=== PATIENT | male | born 1980 | race Caucasian/White ===

== ENCOUNTER 2018-11-26 09:18 | Inpatient (IN) | payer MEDICARE, MEDICAID ==
[~2018-11-26] VITALS: Ht 182.9 cm; Wt 98.0 kg
[2018-11-26] MEDS ORDERED: SODIUM CHLORIDE 0.9% 1000ML BAG (SEPSIS BOLUS) IV ONE (09:45)
[2018-11-26 10:12] LABS: BASOPHILS % 0.1 % (0.0-2.0); HEMATOCRIT. 41.9 % (42.0-52.0); HEMOGLOBIN. 14.1 g/dL (14.0-18.0); LYMPHOCYTES % 7.3 % (20.0-50.0); MEAN CORPUSCULAR HEMOGLOBIN 29.7 pg (28.0-32.0); MEAN CORPUSCULAR VOLUME 88.4 fL (80.0-94.0); MEAN PLATELET VOLUME 9.9 fl (7.4-10.4); MONOCYTES % 9.8 % (2.0-8.0); NEUTROPHILS % 82.8 % (40.0-76.0); PLATELET 185 x1000/uL (130-400); RED BLOOD CELL COUNT 4.74 mill/uL (4.7-6.1); RED CELL DISTRIBUTION WIDTH 16.4 % (11.6-14.6)
[2018-11-26 10:19] LABS: CHLORIDE 103 mEq/L (98-107)
[2018-11-26 10:28] LABS: PROTHROMBIN TIME 10.6 sec (9.6-11.0)
[2018-11-26] MEDS ORDERED: ACETAMINOPHEN 325MG TABLET PO STA (10:36)
[2018-11-26] MEDS ORDERED: VANCOMYCIN 1 G PREMIX 200 ML IV SCH (11:00)
[2018-11-26] MEDS ORDERED: PIPERACILLIN/TAZ 3.375G PREMIX 50 ML IV ONE (11:00)
[2018-11-26] MEDS ORDERED: CLONIDINE 0.1MG TABLET PO PRN (13:00)
[2018-11-26] MEDS ORDERED: MORPHINE SULFATE 2 MG/ML CPJ (NOT FOR IM USE) IV PRN (13:00)
[2018-11-26] MEDS ORDERED: NA PHOS,M-B/NA PHOS,DI-BA ENEMA 118ML PR PRN (13:00)
[2018-11-26] MEDS ORDERED: DOCUSATE SODIUM 100MG CAPSULE PO PRN (13:00)
[2018-11-26] MEDS ORDERED: HYDROCODONE/ACETAMINOPHEN 5/325MG TABLET PO PRN (13:00)
[2018-11-26] MEDS ORDERED: GUAIFENESIN 200MG/10ML SUGAR FREE UDC PO PRN (13:00)
[2018-11-26] MEDS ORDERED: ONDANSETRON HCL 4MG/2ML INJ IV PRN (13:00)
[2018-11-26] MEDS ORDERED: MAGNESIUM/ALUMINUM HYDROXIDE/SIMETHICONE 30ML UDC PO PRN (13:00)
[2018-11-26] MEDS ORDERED: ACETAMINOPHEN 325MG TABLET PO PRN (13:00)
[2018-11-26] MEDS ORDERED: IPRATROPIUM/ALBUTEROL 0.5-3(2.5)MG/3ML NEB ONE (13:08)
[2018-11-26] MEDS: IPRATROPIUM/ALBUTEROL 0.5-3(2.5)MG/3ML NEB INH PRN (13:36)
[2018-11-26 15:12] LABS: CHLORIDE 107 mEq/L (98-107)
[2018-11-26 16:44] LABS: BG BASE EXCESS -0.5 mmol/L (-2.0-2.0); BG CARBOXYHEMOGLOBIN 0.1 % (0.5-1.5); BG DEOXYHEMOGLOBIN 6.6 % (0.0-5.0); BG FRACTION INSPIRED OXYGEN 32; BG HCO3 ACT 24.6 mmol/L (22.0-26.0); BG METHEMOGLOBIN 0.1 % (0.0-1.5); BG OXYGEN SATURATION 93.4 % (92.0-98.5); BG OXYHEMOGLOBIN 93.2 % (94.0-97.0); BG PCO2 42.1 mmHg (35.0-45.0); BG PH 7.385 (7.350-7.450); BG PO2 72.6 mmHg (75.0-100.0); BG SAMPLE SITE RIGHT RADIAL; BG TOTAL HEMOGLOBIN 13.3 g/dL (12.0-18.0); BG VENT MODE NASAL CANNULA
[2018-11-26 16:51] VITALS: BP 124/75
[2018-11-26 17:07] VITALS: BP 124/75
[2018-11-26 18:00] VITALS: BP 100/51
[2018-11-26] MEDS: PIPERACILLIN/TAZ 3.375G PREMIX 50 ML IV SCH (19:31)
[2018-11-26] MEDS: ENOXAPARIN 40MG/0.4ML SYR SUBCUT SCH (19:31)
[2018-11-26] MEDS: SODIUM CHLORIDE 0.45% 1,000 ML IV SCH (19:40)
[2018-11-26 20:00] VITALS: BP 112/70
[2018-11-26 22:00] VITALS: BP 122/68
[2018-11-27] VITALS (33 sets, daily range): BP systolic 112–151; BP diastolic 60–103
[2018-11-27] MEDS: IPRATROPIUM/ALBUTEROL 0.5-3(2.5)MG/3ML NEB HHN SCH ×6 (00:04→19:58)
[2018-11-27] MEDS: LORAZEPAM 2MG/ML CPJ IV PRN ×5 (00:06→19:56)
[2018-11-27] MEDS: ACETYLCYSTEINE 100MG/ML 10% VIAL 4ML INH SCH ×3 (00:10→16:23)
[2018-11-27] MEDS: PIPERACILLIN/TAZ 3.375G PREMIX 50 ML IV SCH ×5 (00:18→23:39)
[2018-11-27] MEDS: SODIUM CHLORIDE 0.45% 1,000 ML IV SCH ×2 (02:11→15:20)
[2018-11-27] MEDS: DIPHENHYDRAMINE 50MG/ML VIAL IV PRN (03:00)
[2018-11-27 04:58] LABS: BG BASE EXCESS 2.8 mmol/L (-2.0-2.0); BG CARBOXYHEMOGLOBIN 0.7 % (0.5-1.5); BG DEOXYHEMOGLOBIN 8.7 % (0.0-5.0); BG FRACTION INSPIRED OXYGEN 21; BG HCO3 ACT 26.9 mmol/L (22.0-26.0); BG METHEMOGLOBIN 0.2 % (0.0-1.5); BG OXYGEN SATURATION 91.2 % (92.0-98.5); BG OXYHEMOGLOBIN 90.4 % (94.0-97.0); BG PCO2 39.7 mmHg (35.0-45.0); BG PH 7.449 (7.350-7.450); BG PO2 59.1 mmHg (75.0-100.0); BG SAMPLE SITE LEFT RADIAL; BG TOTAL HEMOGLOBIN 12.6 g/dL (12.0-18.0); BG VENT MODE ROOM AIR
[2018-11-27 06:50] LABS: BASOPHILS % 0.1 % (0.0-2.0); EOSINOPHILS % 0.8 % (0.0-5.0); HEMATOCRIT. 33.6 % (42.0-52.0); HEMOGLOBIN. 11.3 g/dL (14.0-18.0); LYMPHOCYTES % 9.5 % (20.0-50.0); MEAN CORPUSCULAR HEMOGLOBIN 29.8 pg (28.0-32.0); MEAN CORPUSCULAR VOLUME 88.7 fL (80.0-94.0); MEAN PLATELET VOLUME 9.6 fl (7.4-10.4); MONOCYTES % 11.6 % (2.0-8.0); PLATELET 153 x1000/uL (130-400); RED BLOOD CELL COUNT 3.78 mill/uL (4.7-6.1); RED CELL DISTRIBUTION WIDTH 16.5 % (11.6-14.6)
[2018-11-27 06:52] LABS: CHLORIDE 106 mEq/L (98-107)
[2018-11-27 07:03] LABS: LDL CHOLESTEROL 66 mg/dL (5-100)
[2018-11-27 07:04] LABS: HDL CHOLESTEROL 19 mg/dL (40-59); T4 FREE 0.88 ng/dL (0.76-1.46)
[2018-11-27] MEDS ORDERED: LIDOCAINE HCL/PF 1% 2ML VIAL ONE (07:55)
[2018-11-27] MEDS: IPRATROPIUM/ALBUTEROL 0.5-3(2.5)MG/3ML NEB INH PRN (08:50)
[2018-11-27 11:07] LABS: BG BASE EXCESS 1.7 mmol/L (-2.0-2.0); BG CARBOXYHEMOGLOBIN 0.3 % (0.5-1.5); BG DEOXYHEMOGLOBIN 1.3 % (0.0-5.0); BG FRACTION INSPIRED OXYGEN 80; BG HCO3 ACT 26.5 mmol/L (22.0-26.0); BG METHEMOGLOBIN 0.5 % (0.0-1.5); BG OXYGEN SATURATION 98.7 % (92.0-98.5); BG OXYHEMOGLOBIN 97.9 % (94.0-97.0); BG PCO2 42.2 mmHg (35.0-45.0); BG PH 7.415 (7.350-7.450); BG SAMPLE SITE RIGHT BRACHIAL; BG TOTAL HEMOGLOBIN 11.6 g/dL (12.0-18.0); BG VENT MODE VAPOTHERM
[2018-11-27 12:05] LABS: CLARITY URINE CLEAR (CLEAR); COLOR URINE YELLOW (YELLOW); KETONES URINE NEGATIVE (NEGATIVE); LEUKOCYTE ESTERASE URINE NEGATIVE (NEGATIVE); NITRITE URINE NEGATIVE (NEGATIVE); OCCULT BLOOD URINE NEGATIVE (NEGATIVE); PROTEIN URINE TRACE (NEGATIVE); SPECIFIC GRAVITY URINE 1.025 (1.005-1.030)
[2018-11-27] MEDS: ENOXAPARIN 40MG/0.4ML SYR SUBCUT SCH (16:31)
[2018-11-28] VITALS (30 sets, daily range): BP systolic 106–151; BP diastolic 62–87
[2018-11-28] MEDS: ACETYLCYSTEINE 100MG/ML 10% VIAL 4ML INH SCH ×3 (00:08→16:30)
[2018-11-28] MEDS: IPRATROPIUM/ALBUTEROL 0.5-3(2.5)MG/3ML NEB HHN SCH ×6 (00:08→19:54)
[2018-11-28] MEDS: SODIUM CHLORIDE 0.45% 1,000 ML IV SCH ×2 (03:49→16:45)
[2018-11-28] MEDS: PIPERACILLIN/TAZ 3.375G PREMIX 50 ML IV SCH ×4 (05:05→23:49)
[2018-11-28 05:14] LABS: BASOPHILS % 0.2 % (0.0-2.0); EOSINOPHILS % 1.7 % (0.0-5.0); HEMATOCRIT. 36.9 % (42.0-52.0); HEMOGLOBIN. 12.1 g/dL (14.0-18.0); LYMPHOCYTES % 18.2 % (20.0-50.0); MEAN CORPUSCULAR HEMOGLOBIN 29.4 pg (28.0-32.0); MEAN CORPUSCULAR VOLUME 89.7 fL (80.0-94.0); MEAN PLATELET VOLUME 9.3 fl (7.4-10.4); MONOCYTES % 11.1 % (2.0-8.0); NEUTROPHILS % 68.8 % (40.0-76.0); PLATELET 160 x1000/uL (130-400); RED BLOOD CELL COUNT 4.11 mill/uL (4.7-6.1); RED CELL DISTRIBUTION WIDTH 16.3 % (11.6-14.6)
[2018-11-28 05:18] LABS: CHLORIDE 105 mEq/L (98-107)
[2018-11-28] MEDS: ASPIRIN 81MG EC TABLET PO SCH (09:00)
[2018-11-28 11:16] LABS: BG BASE EXCESS 2.5 mmol/L (-2.0-2.0); BG CARBOXYHEMOGLOBIN 0.1 % (0.5-1.5); BG DEOXYHEMOGLOBIN 3.2 % (0.0-5.0); BG FRACTION INSPIRED OXYGEN 40; BG HCO3 ACT 28.1 mmol/L (22.0-26.0); BG METHEMOGLOBIN 0.3 % (0.0-1.5); BG OXYGEN SATURATION 96.8 % (92.0-98.5); BG OXYHEMOGLOBIN 96.4 % (94.0-97.0); BG PCO2 47.5 mmHg (35.0-45.0); BG PO2 93.5 mmHg (75.0-100.0); BG SAMPLE SITE RIGHT RADIAL; BG TOTAL HEMOGLOBIN 12.1 g/dL (12.0-18.0); BG VENT MODE VAPOTHERM
[2018-11-28] MEDS ORDERED: CLON2TAB11 PO (14:27)
[2018-11-28] MEDS ORDERED: CHLO50TA22 MT (14:27)
[2018-11-28] MEDS ORDERED: OLAN15TA17 MT (14:27)
[2018-11-28] MEDS ORDERED: CHLO100T22 MT (14:27)
[2018-11-28] MEDS ORDERED: BENZ2TAB7 MT (14:27)
[2018-11-28] MEDS ORDERED: DIVA500T51 MT (14:27)
[2018-11-28] MEDS ORDERED: QUET200T29 MT (14:27)
[2018-11-28] MEDS ORDERED: QUET400T11 PO (14:27)
[2018-11-28] MEDS: LORAZEPAM 2MG/ML CPJ IV PRN ×2 (16:45→23:40)
[2018-11-28] MEDS: CLONAZEPAM 1MG TABLET PO SCH (18:01)
[2018-11-28] MEDS: ENOXAPARIN 30MG/0.3ML SYR SUBCUT SCH (21:48)
[2018-11-28] MEDS ORDERED: CLONAZEPAM 1MG TABLET PO SCH (22:00)
[2018-11-29] VITALS (17 sets, daily range): BP systolic 100–144; BP diastolic 64–94
[2018-11-29] MEDS: ACETYLCYSTEINE 100MG/ML 10% VIAL 4ML INH SCH ×4 (00:05→16:41)
[2018-11-29] MEDS: IPRATROPIUM/ALBUTEROL 0.5-3(2.5)MG/3ML NEB HHN SCH ×6 (00:05→20:00)
[2018-11-29] MEDS: CLONAZEPAM 1MG TABLET PO SCH ×3 (01:06→18:39)
[2018-11-29] MEDS: PIPERACILLIN/TAZ 3.375G PREMIX 50 ML IV SCH ×3 (05:17→19:37)
[2018-11-29 06:09] LABS: HEMATOCRIT. 35.4 % (42.0-52.0); HEMOGLOBIN. 11.6 g/dL (14.0-18.0); MEAN CORPUSCULAR HEMOGLOBIN 29.1 pg (28.0-32.0); MEAN CORPUSCULAR VOLUME 88.6 fL (80.0-94.0); MEAN PLATELET VOLUME 8.8 fl (7.4-10.4); PLATELET 221 x1000/uL (130-400); RED CELL DISTRIBUTION WIDTH 16.2 % (11.6-14.6)
[2018-11-29 06:11] LABS: CHLORIDE 104 mEq/L (98-107)
[2018-11-29] MEDS: SODIUM CHLORIDE 0.45% 1,000 ML IV SCH (07:17)
[2018-11-29 08:43] LABS: BG BASE EXCESS 1.8 mmol/L (-2.0-2.0); BG CARBOXYHEMOGLOBIN 0.7 % (0.5-1.5); BG DEOXYHEMOGLOBIN 2.7 % (0.0-5.0); BG FRACTION INSPIRED OXYGEN 40; BG HCO3 ACT 27.8 mmol/L (22.0-26.0); BG METHEMOGLOBIN 0.2 % (0.0-1.5); BG OXYGEN SATURATION 97.3 % (92.0-98.5); BG OXYHEMOGLOBIN 96.4 % (94.0-97.0); BG PCO2 49.3 mmHg (35.0-45.0); BG PH 7.369 (7.350-7.450); BG PO2 102.7 mmHg (75.0-100.0); BG SAMPLE SITE LEFT RADIAL; BG TOTAL HEMOGLOBIN 12.9 g/dL (12.0-18.0); BG VENT MODE VAPOTHERM
[2018-11-29] MEDS: ASPIRIN 81MG EC TABLET PO SCH (08:58)
[2018-11-29] MEDS: ENOXAPARIN 30MG/0.3ML SYR SUBCUT SCH ×2 (08:59→21:49)
[2018-11-29 14:14] LABS: PLATELET ESTIMATE NORMAL
[2018-11-29] MEDS: LORAZEPAM 2MG/ML CPJ IV PRN ×2 (16:20→21:49)
[2018-11-29] MEDS: DIPHENHYDRAMINE 50MG/ML VIAL IV PRN (23:31)
[2018-11-30] MEDS: IPRATROPIUM/ALBUTEROL 0.5-3(2.5)MG/3ML NEB HHN SCH ×7 (00:25→23:53)
[2018-11-30] MEDS: PIPERACILLIN/TAZ 3.375G PREMIX 50 ML IV SCH ×4 (00:53→17:11)
[2018-11-30] MEDS: CLONAZEPAM 1MG TABLET PO SCH ×3 (02:00→17:11)
[2018-11-30 04:00] VITALS: BP 118/74
[2018-11-30] MEDS: SODIUM CHLORIDE 0.45% 1,000 ML IV SCH (06:01)
[2018-11-30 08:00] VITALS: BP 120/94
[2018-11-30 08:05] LABS: BG BASE EXCESS -1.9 mmol/L (-2.0-2.0); BG CARBOXYHEMOGLOBIN 0.3 % (0.5-1.5); BG DEOXYHEMOGLOBIN 7.4 % (0.0-5.0); BG FRACTION INSPIRED OXYGEN 21; BG HCO3 ACT 22.3 mmol/L (22.0-26.0); BG METHEMOGLOBIN 0.3 % (0.0-1.5); BG OXYGEN SATURATION 92.6 % (92.0-98.5); BG PCO2 36.3 mmHg (35.0-45.0); BG PH 7.406 (7.350-7.450); BG PO2 66.2 mmHg (75.0-100.0); BG SAMPLE SITE LEFT RADIAL; BG TOTAL HEMOGLOBIN 13.1 g/dL (12.0-18.0); BG VENT MODE ROOM AIR
[2018-11-30] MEDS: ACETYLCYSTEINE 100MG/ML 10% VIAL 4ML INH SCH ×3 (08:12→23:49)
[2018-11-30] MEDS: LORAZEPAM 2MG/ML CPJ IV PRN ×2 (09:32→15:28)
[2018-11-30] MEDS: ASPIRIN 81MG EC TABLET PO SCH (09:51)
[2018-11-30] MEDS: ENOXAPARIN 30MG/0.3ML SYR SUBCUT SCH ×2 (09:51→20:35)
[2018-11-30 12:00] VITALS: BP 122/74
[2018-11-30 16:00] VITALS: BP 142/85
[2018-11-30] MEDS: DIPHENHYDRAMINE 50MG/ML VIAL IV PRN (17:05)
[2018-11-30 20:00] VITALS: BP 118/75
[2018-12-01] VITALS (7 sets, daily range): BP systolic 108–148; BP diastolic 76–98
[2018-12-01] MEDS: DIPHENHYDRAMINE 50MG/ML VIAL IV PRN ×2 (00:43→06:50)
[2018-12-01] MEDS: SODIUM CHLORIDE 0.45% 1,000 ML IV SCH ×3 (01:37→13:15)
[2018-12-01] MEDS: PIPERACILLIN/TAZ 3.375G PREMIX 50 ML IV SCH ×4 (01:37→17:42)
[2018-12-01] MEDS: CLONAZEPAM 1MG TABLET PO SCH ×3 (02:00→17:42)
[2018-12-01] MEDS: LORAZEPAM 2MG/ML CPJ IV PRN ×2 (03:01→22:01)
[2018-12-01] MEDS: IPRATROPIUM/ALBUTEROL 0.5-3(2.5)MG/3ML NEB HHN SCH ×5 (04:20→20:28)
[2018-12-01] MEDS: ACETYLCYSTEINE 100MG/ML 10% VIAL 4ML INH SCH (09:20)
[2018-12-01] MEDS: ASPIRIN 81MG EC TABLET PO SCH (09:22)
[2018-12-01] MEDS: ENOXAPARIN 30MG/0.3ML SYR SUBCUT SCH ×2 (09:23→21:24)
[2018-12-02] VITALS (7 sets, daily range): BP systolic 114–135; BP diastolic 72–84
[2018-12-02] MEDS: PIPERACILLIN/TAZ 3.375G PREMIX 50 ML IV SCH ×5 (01:17→17:35)
[2018-12-02] MEDS: SODIUM CHLORIDE 0.45% 1,000 ML IV SCH ×2 (01:18→15:46)
[2018-12-02] MEDS: CLONAZEPAM 1MG TABLET PO SCH ×4 (01:18→17:34)
[2018-12-02] MEDS: ACETYLCYSTEINE 100MG/ML 10% VIAL 4ML INH SCH ×2 (01:20→08:00)
[2018-12-02] MEDS: IPRATROPIUM/ALBUTEROL 0.5-3(2.5)MG/3ML NEB HHN SCH ×5 (01:24→20:04)
[2018-12-02] MEDS: ENOXAPARIN 30MG/0.3ML SYR SUBCUT SCH ×2 (09:19→21:36)
[2018-12-02] MEDS: ASPIRIN 81MG EC TABLET PO SCH (09:19)
[2018-12-02] MEDS: DIPHENHYDRAMINE 50MG/ML VIAL IV PRN ×2 (15:46→20:29)
[2018-12-02] MEDS: LORAZEPAM 2MG/ML CPJ IV PRN (21:26)
[2018-12-02] MEDS ORDERED: LORAZEPAM 2MG/ML CPJ IV PRN (22:15)
[2018-12-03] VITALS: BP 120/86
[2018-12-03] MEDS: IPRATROPIUM/ALBUTEROL 0.5-3(2.5)MG/3ML NEB HHN SCH ×3 (00:10→09:21)
[2018-12-03] MEDS: PIPERACILLIN/TAZ 3.375G PREMIX 50 ML IV SCH ×2 (00:44→05:54)
[2018-12-03] MEDS ORDERED: LORAZEPAM 2MG/ML CPJ IV PRN (01:30)
[2018-12-03] MEDS: CLONAZEPAM 1MG TABLET PO SCH ×2 (01:39→09:22)
[2018-12-03] MEDS: DIPHENHYDRAMINE 50MG/ML VIAL IV PRN (03:37)
[2018-12-03 04:00] VITALS: BP 116/76
[2018-12-03] MEDS: SODIUM CHLORIDE 0.45% 1,000 ML IV SCH (05:56)
[2018-12-03 08:00] VITALS: BP 114/78
[2018-12-03] MEDS: ASPIRIN 81MG EC TABLET PO SCH (09:22)
[2018-12-03] MEDS: ENOXAPARIN 30MG/0.3ML SYR SUBCUT SCH (09:22)
[2018-12-03 10:43] VITALS: BP 114/78
[2018-12-03 12:00] VITALS: BP 111/68
== END 2018-12-03 12:30 | disposition short-term general hospital (02) | DRG 871 ==
LOC: ER 09:18 → EDBEDREQ 12:32 → 3WST 12:52 → EDBEDREQ 13:00 → ENRESERV 13:37 → CVICU 11-27 09:50 → 7WST 11-29 12:37
PROVIDERS: ADMIT Internal Medicine; ATTEND Internal Medicine
DX: A41.9 Sepsis, unspecified organism (principal); J69.0 Pneumonitis due to inhalation of food and vomit; G93.41 Metabolic encephalopathy; J96.01 Acute respiratory failure with hypoxia; E87.2 Acidosis; E44.1 Mild protein-calorie malnutrition; I10 Essential (primary) hypertension; F29 Unspecified psychosis not due to a substance or known physiological condition; R65.20 Severe sepsis without septic shock; Z86.73 Personal history of transient ischemic attack (TIA), and cerebral infarction without residual deficits; Z78.1 Physical restraint status; Z68.29 Body mass index [BMI] 29.0-29.9, adult
CPT/HCPCS: 36415; 36600; 71045; 80048; 80061; 82375; 82805; 83605; 83880; 84145; 84439; 84443; 84484; 85379; 92610; 93005; 93306; 93970; 94640; 96365; 99291; A6261; C1893; J1200; J1650; J2060; J2543; J3370; J3490; J7030; J7040; J7050; J7608; J7620; A4315

== ENCOUNTER 2019-06-03 16:50 | Emergency (ER) | payer MEDICARE, MEDICAID ==
[~2019-06-03] VITALS: Ht 180.3 cm; Wt 85.0 kg
[~2019-06-03 16:50] MED LIST: BENZ2TAB7 MT; CHLO100T22 MT; CHLO50TA22 MT; CLON2TAB11 PO; DIVA500T51 MT; OLAN15TA17 MT; QUET200T29 MT; QUET400T11 PO
[2019-06-03 17:57] VITALS: BP 110/58
[2019-06-03 22:30] LABS: BASOPHILS % 0.1 % (0.0-2.0); CHLORIDE 103 mEq/L (98-107); EOSINOPHILS % 1.3 % (0.0-5.0); HEMATOCRIT. 38.6 % (42.0-52.0); HEMOGLOBIN. 13.1 g/dL (14.0-18.0); LYMPHOCYTES % 26.5 % (20.0-50.0); MEAN CORPUSCULAR HEMOGLOBIN 30.2 pg (28.0-32.0); MEAN CORPUSCULAR VOLUME 88.9 fL (80.0-94.0); MEAN PLATELET VOLUME 9.6 fl (7.4-10.4); MONOCYTES % 14.8 % (2.0-8.0); NEUTROPHILS % 57.3 % (40.0-76.0); PLATELET 135 x1000/uL (130-400); RED BLOOD CELL COUNT 4.34 mill/uL (4.7-6.1); RED CELL DISTRIBUTION WIDTH 16.4 % (11.6-14.6)
== END 2019-06-03 23:33 | disposition home or self-care (01) ==
LOC: ER 16:59
DX: R09.81 Nasal congestion (principal); F84.0 Autistic disorder; Z86.73 Personal history of transient ischemic attack (TIA), and cerebral infarction without residual deficits
CPT/HCPCS: 36415; 71045; 80053; 83880; 84484; 85025; 87804; 99284

== ENCOUNTER 2019-09-15 17:54 | Inpatient (IN) | payer MEDICARE, MEDICAID ==
[~2019-09-15] VITALS: Ht 182.9 cm; Wt 91.2 kg
[~2019-09-15 17:54] MED LIST changes: -DIVA500T51 MT; +DIVA500T51 PO; -OLAN15TA17 MT; +OLAN15TA17 PO
[2019-09-15] MEDS ORDERED: SODIUM CHLORIDE 0.9% 1000ML BAG (SEPSIS BOLUS) IV ONE (18:45)
[2019-09-15 19:01] LABS: BASOPHILS % 0.3 % (0.0-2.0); EOSINOPHILS % 0.8 % (0.0-5.0); HEMATOCRIT. 42.3 % (42.0-52.0); HEMOGLOBIN. 14.5 g/dL (14.0-18.0); MEAN CORPUSCULAR HEMOGLOBIN 31.3 pg (28.0-32.0); MEAN CORPUSCULAR VOLUME 91.3 fL (80.0-94.0); MONOCYTES % 11.6 % (2.0-8.0); NEUTROPHILS % 58.3 % (40.0-76.0); PLATELET 139 x1000/uL (130-400); RED BLOOD CELL COUNT 4.63 mill/uL (4.7-6.1); RED CELL DISTRIBUTION WIDTH 15.8 % (11.6-14.6)
[2019-09-15 19:08] LABS: CHLORIDE 100 mEq/L (98-107)
[2019-09-15] MEDS ORDERED: LEVOFLOXACIN 750MG PREMIX 150 ML IV ONE (20:15)
[2019-09-15] MEDS ORDERED: CLONIDINE 0.1MG TABLET PO PRN (21:15)
[2019-09-15] MEDS ORDERED: NITROGLYCERIN 0.4MG TABLET SL SL PRN (21:15)
[2019-09-15] MEDS ORDERED: TRAMADOL 50MG TABLET PO PRN (21:15)
[2019-09-15] MEDS ORDERED: LORAZEPAM 2MG/ML CPJ IV PRN (21:15)
[2019-09-15] MEDS ORDERED: DOCUSATE SODIUM 100MG CAPSULE PO PRN (21:15)
[2019-09-15] MEDS ORDERED: GUAIFENESIN 200MG/10ML SUGAR FREE UDC PO PRN (21:15)
[2019-09-15] MEDS ORDERED: ACETAMINOPHEN 325MG TABLET PO PRN ×2 (21:15)
[2019-09-15] MEDS ORDERED: MAGNESIUM/ALUMINUM HYDROXIDE/SIMETHICONE 30ML UDC PO PRN (21:15)
[2019-09-15] MEDS ORDERED: KETOROLAC 15MG/ML VIAL IV PRN (21:15)
[2019-09-15] MEDS ORDERED: ONDANSETRON HCL 4MG/2ML INJ IV PRN (21:15)
[2019-09-15] MEDS ORDERED: IPRATROPIUM/ALBUTEROL 0.5-3(2.5)MG/3ML NEB ORI PRN (21:15)
[2019-09-15] MEDS ORDERED: LORAZEPAM 2MG/ML CPJ IV ONE (22:00)
[2019-09-15 22:27] LABS: CREATINE KINASE MB FRACTION 8.3 ng/mL (0.5-3.6)
[2019-09-15 22:55] LABS: CLARITY URINE CLEAR (CLEAR); COLOR URINE YELLOW (YELLOW); KETONES URINE NEGATIVE (NEGATIVE); LEUKOCYTE ESTERASE URINE NEGATIVE (NEGATIVE); NITRITE URINE NEGATIVE (NEGATIVE); OCCULT BLOOD URINE NEGATIVE (NEGATIVE); PH URINE 6.5 (4.5-8.0); PROTEIN URINE NEGATIVE (NEGATIVE); SPECIFIC GRAVITY URINE 1.009 (1.005-1.030)
[2019-09-16 09:00] LABS: CREATINE KINASE MB FRACTION 5.1 ng/mL (0.5-3.6)
[2019-09-16] MEDS ORDERED: CEFTRIAXONE 1 G PREMIX 50 ML IV SCH (09:00)
[2019-09-16] MEDS: ZINC SULFATE 220 MG ( 50 ) CAPSULE PO SCH (09:05)
[2019-09-16] MEDS: ASCORBIC ACID 500 MG TABLET PO SCH ×2 (09:05→21:00)
[2019-09-16] MEDS: FAMOTIDINE 20MG TABLET PO SCH ×2 (09:11→21:00)
[2019-09-16] MEDS: DIVALPROEX SODIUM 500MG DR TABLET PO SCH (09:12)
[2019-09-16] MEDS: GUAIFENESIN/DM 600MG/30MG ER TAB 12HR PO SCH ×2 (09:48→21:00)
[2019-09-16] MEDS ORDERED: CLONAZEPAM 1MG TABLET PO SCH (14:00)
[2019-09-16] MEDS ORDERED: LEVOFLOXACIN 500MG PREMIX 100 ML IV SCH (21:00)
[2019-09-16] MEDS ORDERED: ZOLPIDEM TARTRATE 5MG TABLET PO PRN (21:00)
[2019-09-16 22:30] VITALS: BP 156/89
[2019-09-16] MEDS ORDERED: DIVA250T45 PO (23:48)
[2019-09-17 04:00] VITALS: BP 113/57
[2019-09-17] MEDS: CLONAZEPAM 1MG TABLET PO SCH ×3 (06:55→21:05)
[2019-09-17 08:00] VITALS: BP 128/87
[2019-09-17] MEDS: GUAIFENESIN/DM 600MG/30MG ER TAB 12HR PO SCH ×2 (09:15→20:08)
[2019-09-17] MEDS: ZINC SULFATE 220 MG ( 50 ) CAPSULE PO SCH (09:15)
[2019-09-17] MEDS: DIVALPROEX SODIUM 500MG DR TABLET PO SCH (09:16)
[2019-09-17] MEDS: ASCORBIC ACID 500 MG TABLET PO SCH ×2 (09:16→20:08)
[2019-09-17] MEDS: FAMOTIDINE 20MG TABLET PO SCH ×2 (09:16→20:08)
[2019-09-17] MEDS: CEFTRIAXONE 1 G PREMIX 50 ML IV SCH (11:00)
[2019-09-17 12:00] VITALS: BP 120/80
[2019-09-17] MEDS ORDERED: LEVOFLOXACIN 500MG PREMIX 100 ML IV NR (14:00)
[2019-09-17] MEDS ORDERED: LEVOFLOXACIN 500MG TABLET PO NR (14:15)
[2019-09-17 16:00] VITALS: BP 142/96
[2019-09-17] MEDS: HALOPERIDOL LACTATE 5MG/ML VIAL IM PRN ×2 (16:51→22:14)
[2019-09-17 20:00] VITALS: BP 141/83
[2019-09-18] VITALS: BP 131/77
[2019-09-18 04:00] VITALS: BP 122/85
[2019-09-18] MEDS: CLONAZEPAM 1MG TABLET PO SCH ×3 (05:02→20:47)
[2019-09-18 08:00] VITALS: BP 115/72
[2019-09-18] MEDS: ASCORBIC ACID 500 MG TABLET PO SCH ×2 (09:48→20:47)
[2019-09-18] MEDS: FAMOTIDINE 20MG TABLET PO SCH ×2 (09:48→20:47)
[2019-09-18] MEDS: GUAIFENESIN/DM 600MG/30MG ER TAB 12HR PO SCH ×2 (09:48→20:47)
[2019-09-18] MEDS: ZINC SULFATE 220 MG ( 50 ) CAPSULE PO SCH (09:48)
[2019-09-18] MEDS: DIVALPROEX SODIUM 500MG DR TABLET PO SCH (09:48)
[2019-09-18] MEDS: HALOPERIDOL LACTATE 5MG/ML VIAL IM PRN ×3 (10:21→17:45)
[2019-09-18] MEDS: CEFTRIAXONE 1 G PREMIX 50 ML IV SCH (11:00)
[2019-09-18] MEDS ORDERED: LEVOFLOXACIN 500MG TABLET PO SCH (11:00)
[2019-09-18 12:00] VITALS: BP 112/69
[2019-09-18 16:00] VITALS: BP 114/87
[2019-09-18 20:00] VITALS: BP 111/65
[2019-09-19] VITALS: BP 127/77
[2019-09-19 04:00] VITALS: BP 136/70
[2019-09-19] MEDS: CLONAZEPAM 1MG TABLET PO SCH (05:24)
[2019-09-19] MEDS: ASCORBIC ACID 500 MG TABLET PO SCH (10:58)
[2019-09-19] MEDS: FAMOTIDINE 20MG TABLET PO SCH (10:58)
[2019-09-19] MEDS: DIVALPROEX SODIUM 500MG DR TABLET PO SCH (10:58)
[2019-09-19] MEDS: GUAIFENESIN/DM 600MG/30MG ER TAB 12HR PO SCH (10:59)
[2019-09-19] MEDS: ZINC SULFATE 220 MG ( 50 ) CAPSULE PO SCH (10:59)
[2019-09-19] MEDS ORDERED: CEFTRIAXONE 1,000 MG in DEXTROSE 5% WATER 50 ML IV SCH (11:00)
[2019-09-19 12:04] VITALS: BP 110/89
[2019-09-19] MEDS ORDERED: VANCOMYCIN 2,000 MG in DEXT 5% WATER 500 ML IV SCH (13:00)
[2019-09-19] MEDS ORDERED: VANCOMYCIN 1500MG in DEXTROSE 5% WATER 250ML IV SCH (22:00)
== END 2019-09-19 14:00 | disposition home or self-care (01) | DRG 871 ==
LOC: ER 17:54 → EDBD 21:03 → 5WST 21:03 → SUPCPDRO 21:09 → EDBEDREQ 21:19 → EDBEDREQTM 21:19 → ENRESERV 09-16 19:32 → CANRESERV 09-16 19:32 → EDBEDREQ 09-16 20:22 → ENRESERV 09-16 20:39 → CANRESERV 09-16 20:39 → ER 09-16 21:43 → ENRESERV 09-16 21:44 → 5WST 09-17 21:00 → 6WST 09-18 19:00
PROVIDERS: ADMIT Internal Medicine; ATTEND Internal Medicine
DX: A41.9 Sepsis, unspecified organism (principal); G92 Toxic encephalopathy; F84.0 Autistic disorder; E44.0 Moderate protein-calorie malnutrition; Z20.828 Contact with and (suspected) exposure to other viral communicable diseases; Z86.73 Personal history of transient ischemic attack (TIA), and cerebral infarction without residual deficits; Z68.27 Body mass index [BMI] 27.0-27.9, adult
CPT/HCPCS: 36415; 71045; 80053; 80061; 80165; 81003; 82553; 83036; 83605; 84145; 84484; 85025; 87635; 93005; 93970; 96365; 96367; 96375; 99291; J0696; J1630; J1956; J2060; J3370; J7030; J7060; U0003-CS

== ENCOUNTER 2020-06-02 12:34 | Emergency (ER) | payer MEDICARE, MEDICAID ==
[~2020-06-02] VITALS: Ht 182.9 cm; Wt 84.0 kg
[~2020-06-02 12:34] MED LIST changes: +DIVA250T45 PO
[2020-06-02 12:38] VITALS: BP 126/74
[2020-06-02] MEDS ORDERED: BACITRACIN ZINC OINT UDPKT TOP ONE (14:15)
== END 2020-06-02 14:42 | disposition home or self-care (01) ==
LOC: ER 12:34
DX: S90.522A Blister (nonthermal), left ankle, initial encounter (principal); X58.XXXA Exposure to other specified factors, initial encounter; Y93.89 Activity, other specified; Y92.89 Other specified places as the place of occurrence of the external cause; Y99.8 Other external cause status
CPT/HCPCS: 73610; 99283